=== PATIENT | male | born 1945 | race Hispanic/Latino ===

== ENCOUNTER 2022-05-07 07:52 | Day surgery (SDC) | payer OTHER ==
[2022-05-07] MEDS ORDERED: Ringers Lactate 1,000 ML IV ONE (08:16)
[2022-05-07] MEDS ORDERED: propofoL 200 MG/20 ML VIAL IV ONE (10:40)
[2022-05-07] MEDS ORDERED: LIDOCAINE 1% MPF 5 ML VIAL ONE (10:40)
[2022-05-07 12:09] VITALS: O2SAT 99
[2022-05-07 12:18] VITALS: BP 139/84; TEMP 97.5
--- NOTE | 2022-05-07 16:00 | EKG ---
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
== END 2022-05-07 11:57 | disposition home or self-care (01) ==
LOC: OR 07:52
PROVIDERS: ATTEND Surgery
PROC: 0DBH8ZX Excision of Cecum, Via Natural or Artificial Opening Endoscopic, Diagnostic (ICD-10-PCS; principal; 2022-05-07 11:00)
DX: Z12.11 Encounter for screening for malignant neoplasm of colon (principal); K57.30 Diverticulosis of large intestine without perforation or abscess without bleeding; K64.8 Other hemorrhoids; D36.9 Benign neoplasm, unspecified site
CPT/HCPCS: 93005; 88305; 45380; J2704; J2001; J7120